=== PATIENT | female | born 1990 | race African-American/Black ===

== ENCOUNTER 2017-07-05 13:02 | Emergency (ER) | payer MEDICAID ==
[~2017-07-05] VITALS: Ht 185.4 cm; Wt 68.2 kg
[2017-07-05 13:24] VITALS: BP 114/48
[2017-07-05] MEDS ORDERED: ONDANSETRON HCL 4 MG/2 ML VIAL IM ONE (13:45)
[2017-07-05] MEDS ORDERED: CLINDAMYCIN HCL 150 MG CAPSULE PO ONE (13:45)
[2017-07-05] MEDS ORDERED: MORPHINE SULFATE 4 MG/ML SYRINGE IVP ONE (13:45)
== END 2017-07-05 13:56 | disposition home or self-care (01) ==
LOC: EMS 13:03
DX: K04.7 Periapical abscess without sinus (principal); F12.90 Cannabis use, unspecified, uncomplicated; F17.210 Nicotine dependence, cigarettes, uncomplicated
CPT/HCPCS: 81025; 96372; 96374; 99284; J2270; J2405

== ENCOUNTER 2017-07-08 09:28 | Emergency (ER) | payer MEDICAID ==
[~2017-07-08] VITALS: Ht 185.4 cm; Wt 72.7 kg
[2017-07-08] MEDS ORDERED: PERCT PO (10:00)
[2017-07-08] MEDS ORDERED: antibiotic PO (10:00)
[2017-07-08 10:44] VITALS: BP 115/69
== END 2017-07-08 11:16 | disposition home or self-care (01) ==
LOC: EMS 09:29
DX: K04.7 Periapical abscess without sinus (principal); F17.210 Nicotine dependence, cigarettes, uncomplicated
CPT/HCPCS: 99283